=== PATIENT | female | born 1965 | race Caucasian/White ===

== ENCOUNTER 2018-04-11 14:17 | Emergency (ER) | payer BC ==
[~2018-04-11] VITALS: Ht 172.7 cm; Wt 90.1 kg
[~2018-04-11 14:17] MED LIST: AMOXICILLIN500 MG PO; AUGMENTIN875TAB PO; ZPAK PO
[2018-04-11] MEDS ORDERED: BENZONATATE200 MG PO (14:30)
[2018-04-11] MEDS ORDERED: MEDROL DOSEPAK4 MG (14:31)
[2018-04-11] MEDS ORDERED: ZPAK PO (14:32)
[2018-04-11 15:57] VITALS: BP 131/93
== END 2018-04-11 15:58 | disposition home or self-care (01) | DRG 103 ==
LOC: ED 14:17
DX: G43.909 Migraine, unspecified, not intractable, without status migrainosus (principal); R11.2 Nausea with vomiting, unspecified; H53.142 Visual discomfort, left eye

== ENCOUNTER 2020-09-21 07:22 | Day surgery (SDC) | payer BC ==
[~2020-09-21 07:22] MED LIST changes: +ASPIRIN81 MG PO; +BENZONATATE200 MG PO; +HYDROCHLOROT25 MG PO; +LISINOPRIL5 MG PO; +MEDROL DOSEPAK4 MG; +VITAMIN D35000 UNIT PO
[2020-09-21 09:44] VITALS: BP 96/55
== END 2020-09-21 09:40 | disposition home or self-care (01) | DRG 951 ==
LOC: ENDO 07:22
PROVIDERS: ATTEND Surgery
PROC: 0DJD8ZZ Inspection of Lower Intestinal Tract, Via Natural or Artificial Opening Endoscopic (ICD-10-PCS; principal; 2020-09-21)
DX: Z12.11 Encounter for screening for malignant neoplasm of colon (principal); I10 Essential (primary) hypertension; Z20.822 Contact with and (suspected) exposure to COVID-19

== ENCOUNTER 2021-02-25 21:21 | Emergency (ER) | payer BC ==
[~2021-02-25] VITALS: Ht 172.7 cm; Wt 91.0 kg
[2021-02-25 23:15] VITALS: BP 110/68
== END 2021-02-25 23:15 | disposition home or self-care (01) | DRG 563 ==
LOC: ED 21:21
DX: S63.501A Unspecified sprain of right wrist, initial encounter (principal); I10 Essential (primary) hypertension; X50.0XXA Overexertion from strenuous movement or load, initial encounter

== ENCOUNTER 2022-04-04 17:14 | Emergency (ER) | payer BC ==
[2022-04-04] VITALS (22 sets, daily range): BP systolic 84–109; BP diastolic 51–69
[~2022-04-04] VITALS: Ht 172.7 cm; Wt 86.3 kg
[2022-04-04 17:57] LABS: HEMATOCRIT 38.1 % (37.0-47.0); HEMOGLOBIN 12.3 g/dl (12.0-16.0); IMMATURE GRANULOCYTES 0.2 % (0.0-5.0); MEAN CELL VOLUME 89.6 fL CALC (80.0-100.0); MEAN CORPUSCULAR HGB 28.9 pG CALC (26.0-32.0); MEAN CORPUSCULAR HGB CONC 32.3 g/dL CAL (32.0-36.0); NEUT# 8.34 thou/uL (2.00-7.15); RED BLOOD COUNT 4.25 mill/uL (4.20-5.60); RED CELL DISTRI WIDTH 13.9 % (11.5-15.5)
[2022-04-04 18:14] LABS: ALBUMIN 3.9 g/dL (3.2-5.0); ALKALINE PHOSPHATASE 91 u/l (38-126); BILIRUBIN, TOTAL 0.2 mg/dL (0.0-1.4); BUN 18 mg/dL (7-17); BUN/CREATININE RATIO 19 (12-20 (CALC)); CARBON DIOXIDE 28 mmol/l (22-30); CHLORIDE 103 mmol/l (95-108); GFR FOR AFR.AMER. > 60 ML/MIN (>=60 (CALC)); GFR OTHER RACES 58 ML/MIN (>=60 (CALC)); POTASSIUM 3.8 mmol/l (3.5-5.1); SGOT/AST 16 u/l (14-36); TOTAL PROTEIN 6.4 g/dL (6.3-8.2)
[2022-04-04 18:17] LABS: ANION GAP 8 (6-22 (CALC)); SODIUM 135 mmol/l (137-146)
[2022-04-04 19:22] LABS: URINE BILIRUBIN - DIPSTICK NEGATIVE (NEGATIVE); URINE BLOOD DIPSTICK TRACE-LYSED (NEGATIVE); URINE COLOR YELLOW; URINE GLUCOSE - DIPSTICK NEGATIVE (NEGATIVE); URINE KETONE NEGATIVE (NEGATIVE); URINE PH 6.5 (4.5-8.0); URINE PROTEIN - DIPSTICK NEGATIVE (NEG-TRACE); URINE UROBILINOGEN - DIPSTICK 0.2 E.U./dL (0.2)
[2022-04-04 19:24] LABS: URINE LEUK ESTERASE SMALL (NEGATIVE); URINE NITRITE - DIPSTICK NEGATIVE (Negative)
[2022-04-04 19:34] LABS: URINE RBC 0-2 RBC/hpf (0-5); URINE SQUAMOUS EPITHELIAL CELL FEW EPI/hpf (0-FEW)
== END 2022-04-04 22:14 | disposition home or self-care (01) | DRG 948 ==
LOC: ED 17:14
PROVIDERS: Family Medicine
DX: R53.1 Weakness (principal); R42 Dizziness and giddiness; R51.9 Headache, unspecified; I10 Essential (primary) hypertension; Z20.822 Contact with and (suspected) exposure to COVID-19

== ENCOUNTER 2023-03-30 21:02 | Emergency (ER) | payer BC ==
[~2023-03-30] VITALS: Ht 172.7 cm; Wt 86.0 kg
[2023-03-30 21:24] VITALS: BP 106/72
[2023-03-30 21:30] VITALS: BP 100/75
[2023-03-30 21:45] VITALS: BP 106/66
[2023-03-30 22:00] VITALS: BP 103/66
[2023-03-30 22:15] VITALS: BP 102/68
[2023-03-30] MEDS ORDERED: NAPROXEN500 MG PO (23:41)
[2023-03-31 00:16] VITALS: BP 102/68
== END 2023-03-31 00:16 | disposition home or self-care (01) | DRG 605 ==
LOC: ED 21:02
DX: S20.211A Contusion of right front wall of thorax, initial encounter (principal); I10 Essential (primary) hypertension; W17.89XA Other fall from one level to another, initial encounter; Y93.16 Activity, rowing, canoeing, kayaking, rafting and tubing; Y92.831 Amusement park as the place of occurrence of the external cause

== ENCOUNTER 2023-09-18 08:37 | Emergency (ER) | payer OTHER, BC ==
[~2023-09-18] VITALS: Ht 172.7 cm; Wt 89.8 kg
[2023-09-18] VITALS (14 sets, daily range): BP systolic 94–115; BP diastolic 56–71
[~2023-09-18 08:37] MED LIST changes: +NAPROXEN500 MG PO
== END 2023-09-18 13:10 | disposition home or self-care (01) | DRG 605 ==
LOC: ED 08:37
DX: S41.112A Laceration without foreign body of left upper arm, initial encounter (principal); I10 Essential (primary) hypertension; W01.0XXA Fall on same level from slipping, tripping and stumbling without subsequent striking against object, initial encounter; Y92.89 Other specified places as the place of occurrence of the external cause; Y99.0 Civilian activity done for income or pay

== ENCOUNTER 2024-04-07 15:18 | Emergency (ER) | payer BC ==
[2024-04-07] VITALS (13 sets, daily range): BP systolic 95–118; BP diastolic 62–73
[~2024-04-07] VITALS: Ht 172.7 cm; Wt 88.6 kg
[~2024-04-07 15:18] MED LIST changes: +MELOXICAM15 MG PO; +METHOCARBAMOL500 MG PO
[2024-04-07] MEDS ORDERED: METOPROLOL TARTRATE 25 MG/TAB PO ONE (15:35)
[2024-04-07] MEDS ORDERED: SODIUM CHLORIDE 0.9% 1,000 ML IV ONE (15:45)
[2024-04-07 15:57] LABS: BASO% 0.4 % (0-3); EOS% 3.2 % (0-8); HEMATOCRIT 39.8 % (37.0-47.0); HEMOGLOBIN 13.2 g/dl (12.0-16.0); IMMATURE GRANULOCYTES 0.1 % (0.0-5.0); LYMPH% 29.5 % (15-41); MEAN CELL VOLUME 88.6 fL CALC (80.0-100.0); MEAN CORPUSCULAR HGB 29.4 pG CALC (26.0-32.0); MEAN CORPUSCULAR HGB CONC 33.2 g/dL CAL (32.0-36.0); MONO% 7.8 % (2-13); NEUT# 5.44 thou/uL (2.00-7.15); RED BLOOD COUNT 4.49 mill/uL (4.20-5.60); RED CELL DISTRI WIDTH 12.9 % (11.5-15.5)
[2024-04-07 16:12] LABS: ALBUMIN 4.5 g/dL (3.2-5.0); ALKALINE PHOSPHATASE 129 u/l (38-126); ANION GAP 8 (6-22 (CALC)); BILIRUBIN, TOTAL 0.2 mg/dL (0.02-1.3); BUN 14 mg/dL (7-17); BUN/CREATININE RATIO 17 (12-20 (CALC)); CARBON DIOXIDE 29 mmol/l (22-30); CHLORIDE 104 mmol/l (95-108); CREATININE 0.8 mg/dL (0.5-1.0); ESTIMATED GFR 86 ML/MIN (>=90 (CALC)); POTASSIUM 3.6 mmol/l (3.5-5.1); SGOT/AST 26 u/l (14-36); SODIUM 137 mmol/l (137-146); TOTAL PROTEIN 7.4 g/dL (6.3-8.2)
[2024-04-07 17:13] LABS: URINE BILIRUBIN - DIPSTICK Negative (NEGATIVE); URINE BLOOD DIPSTICK Trace-intact (NEGATIVE); URINE GLUCOSE - DIPSTICK Negative (NEGATIVE); URINE KETONE Negative (NEGATIVE); URINE NITRITE - DIPSTICK Negative (Negative); URINE PH 7.5 (4.5-8.0); URINE PROTEIN - DIPSTICK Negative (NEG-TRACE); URINE SPECIFIC GRAVITY 1.015; URINE UROBILINOGEN - DIPSTICK 0.2 E.U./dL (0.2)
[2024-04-07 17:14] LABS: URINE COLOR Yellow
[2024-04-07 17:15] LABS: URINE LEUK ESTERASE Moderate (NEGATIVE)
[2024-04-07 17:21] LABS: URINE RBC 0-2 RBC/hpf (0-5); URINE SQUAMOUS EPITHELIAL CELL FEW EPI/hpf (0-FEW)
[2024-04-07 17:22] LABS: URINE BACTERIA FEW hpf; URINE TRANSITIONAL EPI. CELLS RARE hpf
[2024-04-07] MEDS ORDERED: LOPRESSOR25 MG PO (18:34)
[2024-04-07] MEDS ORDERED: MACROBID100 M1 PO (18:42)
== END 2024-04-07 18:40 | disposition home or self-care (01) | DRG 309 ==
LOC: ED 15:18
PROVIDERS: Nurse Practitioner
DX: I49.3 Ventricular premature depolarization (principal); N39.0 Urinary tract infection, site not specified; I10 Essential (primary) hypertension

== ENCOUNTER 2024-09-24 22:56 | Emergency (ER) | payer BC ==
[~2024-09-24] VITALS: Ht 172.7 cm; Wt 90.0 kg
[~2024-09-24 22:56] MED LIST changes: +LOPRESSOR25 MG PO; +MACROBID100 M1 PO
[2024-09-24 23:03] VITALS: BP 107/67
[2024-09-24 23:10] VITALS: BP 116/72
[2024-09-24] MEDS ORDERED: OXYMETAZOLINE HCL 15 ML/BTL ONE (23:10)
[2024-09-24 23:21] VITALS: BP 116/72
== END 2024-09-24 23:21 | disposition home or self-care (01) | DRG 151 ==
LOC: ED 22:56
DX: R04.0 Epistaxis (principal); I10 Essential (primary) hypertension; Z98.890 Other specified postprocedural states